=== PATIENT | male | born 1990 | race Caucasian/White ===

== ENCOUNTER 2018-07-31 19:11 | Emergency (ER) | payer SELFPAY ==
[~2018-07-31] VITALS: Ht 180.3 cm; Wt 86.2 kg
[2018-07-31 19:11] VITALS: BP 117/65
[2018-07-31] MEDS ORDERED: NEOMYCIN/BACITRAC/POLY TOPICAL OINTMENT 28GM TUBE. TP ONE (19:30)
--- NOTE | 2018-07-31 19:30 | PHYS DOC ---
Past History Past Medical History: No Pertinent History Past Surgical History: No Surgical History Adult General Chief Complaint Chief Complaint: LACERATION/AVULSION HPI HPI Patient presents to the emergency department for evaluation. He was slicing apples just prior to arrival, when he accidentally sliced the tip of his right index finger off. His last tetanus was 3 years ago. He denies any other complaints. He was having some difficulty getting the bleeding to stop so he came to the emergency department. Review of Systems Review of Systems Constitutional: Denies fever or chills [] Hematologic: Denies easy bruising or bleeding. Integument: Denies rash or skin lesions [] Neurologic: Denies headache, focal weakness or sensory changes [] Physical Exam Physical Exam PHYSICAL EXAM: HEENT: Atruamatic NECK: Supple, normal ROM, non-tender. CARDIAC: Regular Rate and Rhythm LUNGS: Clear Bilaterally EXTREMITIES: There is a 1 cm by three-quarter centimeter circular avulsion of the distal tip of the right index finger, with a very small amount of venous bleeding present. This is distal to the fingernail tip. There is no other wound present. The remainder of the extremities are unremarkable. Capillary refill and distal sensation are normal. EKG EKG [] Radiology/Procedures Radiology/Procedures [] Course & Med Decision Making Course & Med Decision Making I discussed wound care with the patient, the need for PCP follow-up and return precautions. Dragon Disclaimer Dragon Disclaimer This electronic medical record was generated, in whole or in part, using a voice recognition dictation system. Departure Departure: Impression: Primary Impression: Skin avulsion Disposition: 01 HOME, SELF-CARE Condition: STABLE Patient Instructions: Deep Skin Avulsion SALLY HENDERSON MD Jul 31, 2018 19:30
== END 2018-07-31 19:56 | disposition home or self-care (01) ==
LOC: ER 19:11
DX: S61.300A Unspecified open wound of right index finger with damage to nail, initial encounter (principal); W26.0XXA Contact with knife, initial encounter; Y93.89 Activity, other specified; Y92.89 Other specified places as the place of occurrence of the external cause; Y99.8 Other external cause status
CPT/HCPCS: 99283